=== PATIENT | female | born 1980 ===

== ENCOUNTER 2017-10-21 13:39 | Emergency (ER) | payer SELFPAY ==
[2017-10-21 13:49] VITALS: BP 120/78; PULSE 77; RESP 16; TEMP 97.5; O2SAT 100
--- NOTE | 2017-10-21 14:55 | C.PDOC ---
History Of Present Illness 37 year old female presents to the ED for psychiatric evaluation.Patient states she was involved in an argument with her , who kicked her out of their apartment and took her kids. Patient presents to ED requesting psychiatric evaluation so she may present to court. Patient denies suicidal/homicidal ideation at this time. Time Seen by Provider: 10/21/17 13:57 Chief Complaint (Nursing): Psychiatric Evaluation History Per: Patient History/Exam Limitations: no limitations Current Symptoms Are (Timing): Still Present Suicide/Self Injury Attempted (Context): None Modifying Factor(s): None Associated Symptoms: denies: Suicidal Thoughts, Suicidal Plan Involuntary Hold By: None Recent travel outside of the [place]: No Additional History Per: Patient Past Medical History Reviewed: Historical Data, Nursing Documentation, Vital Signs Vital Signs: Last Vital Signs Temp 97.5 F L 10/21/17 13:46 Pulse 77 10/21/17 13:46 Resp 16 10/21/17 13:46 BP 120/78 10/21/17 13:46 Pulse Ox 100 10/21/17 15:35 - Medical History PMH: No Chronic Diseases Surgical History: No Surg Hx Family History: States: Unknown Family Hx - Social History Hx Alcohol Use: No Hx Substance Use: No - Immunization History Hx Tetanus Toxoid Vaccination: No Hx Influenza Vaccination: No Hx Pneumococcal Vaccination: No Review Of Systems Psych: Positive for: Other (psychiatric evaluation ). Negative for: Suicidal ideation Physical Exam - Physical Exam Appears: Non-toxic, No Acute Distress Skin: Normal Color, Warm, Dry Neurological/Psych: Oriented x3, Normal Speech, Normal Cognition Gait: Steady ED Course And Treatment O2 Sat by Pulse Oximetry: 100 (on RA ) Pulse Ox Interpretation: Normal Progress Note: Case discussed with social service worker, who evaluated patient and informed her that psychiatric evaluation cannot be done in this ED and patient must follow up with [facility] for further evaluation. Patient eloped from the ED prior to receiving discharge papers. Disposition - Disposition Disposition: ELOPEMENT - ER ONLY Disposition Time: 14:54 Condition: STABLE Forms: [facility] ([facility]) - Clinical Impression Clinical Impression: Evaluation by psychiatric service required - PA / ELECTRICIAN MAINTENANCE / Resident Statement MD/DO has reviewed & agrees with the documentation as recorded. - Scribe Statement The provider has reviewed the documentation as recorded by the Scribe (Faustina Gonzales) All medical record entries made by the Scribe were at my direction and personally dictated by me. I have reviewed the chart and agree that the record accurately reflects my personal performance of the history, physical exam, medical decision making, and the department course for this patient. I have also personally directed, reviewed, and agree with the discharge instructions and disposition.
== END 2017-10-21 15:10 | disposition left against medical advice (07) ==
LOC: C.ER 13:39
DX: Z00.8 Encounter for other general examination (principal)